=== PATIENT | male | born 1960 | race Caucasian/White ===

== ENCOUNTER 2016-11-16 07:13 | Emergency (ER) | payer OTHER ==
[2016-11-16] MEDS ORDERED: OFLOXACIN 0.3% SOLN PREPACK OPHT.BTL TAKEHOME ONE (07:34)
--- NOTE | 2016-11-16 07:36 | EDPHY ---
H & P Stated Complaint: concerns of B eye conjunctivitis Time Seen by Provider: 11/16/16 07:30 HPI/ROS: CHIEF COMPLAINT: Bilateral eye irritation HISTORY OF PRESENT ILLNESS: Patient is a 56-year-old man who comes to the emergency department complaining of 3 days of itchy and watery eyes with greenish discharge. It began in his right eye and now is both. No fevers. No upper respiratory symptoms. No sore throat. He is not on any medications. REVIEW OF SYSTEMS: Constitutional: denies: chills, fever, recent illness, recent injury EENTM: See HPI Respiratory: denies: cough, shortness of breath Cardiac: denies: chest pain, irregular heart rate, lightheadedness, palpitations Gastrointestinal/Abdominal: denies: abdominal pain, diarrhea, nausea, vomiting, blood streaked stools Genitourinary: denies: dysuria, frequency, hematuria, pain Musculoskeletal: denies: joint pain, muscle pain Skin: denies: lesions, rash, jaundice, bruising Neurological: denies: headache, numbness, paresthesia, tingling, dizziness, weakness Hematologic/Lymphatic: denies: blood clots, easy bleeding, easy bruising Immunologic/allergic: denies: HIV/AIDS, transplant EXAM: GENERAL: Well-appearing, well-nourished and in no acute distress. HEAD: Atraumatic, normocephalic. EYES: Pupils equal round and reactive to light, extraocular movements intact, sclera anicteric, conjunctiva injected with discharge . ENT: TMs normal, nares patent, oropharynx clear without exudates. Moist mucous membranes. NECK: Normal range of motion, supple without lymphadenopathy or JVD. LUNGS: Breath sounds clear to auscultation bilaterally and equal. No wheezes rales or rhonchi. HEART: Regular rate and rhythm without murmurs, rubs or gallops. ABDOMEN: Soft, nontender, normoactive bowel sounds. No guarding, no rebound. No masses appreciated. BACK: No CVA tenderness, no spinal tenderness, step-offs or deformities EXTREMITIES: Normal range of motion, no pitting or edema. No clubbing or cyanosis. NEUROLOGICAL: Cranial nerves II through XII grossly intact. Normal speech, normal gait. 5/5 strength, normal movement in all extremities, normal sensation PSYCH: Normal mood, normal affect. SKIN: Warm, dry, normal turgor, no visible rashes or lesions. Source: Patient Exam Limitations: No limitations - Personal History Current Tetanus/Diphtheria Vaccine: Unsure Current Tetanus Diphtheria and Acellular Pertussis (TDAP): Unsure - Medical/Surgical History Hx Asthma: No Hx Chronic Respiratory Disease: No Hx Diabetes: No Hx Cardiac Disease: No Hx Renal Disease: No Hx Cirrhosis: No Hx Alcoholism: No Hx HIV/AIDS: No Hx Splenectomy or Spleen Trauma: No Other PMH: denies - Family History Significant Family History: No pertinent family hx - Social History Smoking Status: Never smoked Alcohol Use: Sober Drug Use: None Constitutional: Initial Vital Signs Temperature (C) 36.3 C 11/16/16 07:14 Heart Rate 55 L 11/16/16 07:14 Respiratory Rate 14 11/16/16 07:14 Blood Pressure 106/74 11/16/16 07:14 O2 Sat (%) 96 11/16/16 07:14 O2 Delivery Mode Room Air Allergies/Adverse Reactions: alcohol [gin] Allergy (Verified 11/16/16 07:15) ybarra beans Allergy (Uncoded 11/16/16 07:15) Home Medications: Medication Instructions Recorded Tamsulosin HCl 11/16/16 Valacyclovir 11/16/16 Medical Decision Making ED Course/Re-evaluation: I will treat the patient with Ocuflox. He does not wear contacts or glasses. 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 Agrees with this plan. He declines further workup or testing at this time. Differential Diagnosis: Partial list of the Differential diagnosis considered include but were not limited to; conjunctivitis, blepharitis, allergies and although unlikely based on the history and physical exam, I also considered foreign body, ruptured globe , iritis, glaucoma. I discussed these differential diagnoses and the plan with the patient as well as the usual and expected course. The patient understands that the diagnosis is provisional and that in medicine we are not always correct and that further workup is often warranted. Usual and customary warnings were given. All of the patient's questions were answered. The patient was instructed to return to the emergency department should the symptoms at all worsen or return, otherwise to followup with the physician as we discussed. - Data Points Medications Given: Discontinued Medications Ofloxacin (Ocuflox 0.3% Opht Drops Prepack) 1 btl TAKEHOME EDNOW ONE Stop: 11/16/16 07:35 Last Admin: 11/16/16 07:39 Dose: 1 btl Departure - Departure Disposition: Home, Routine, Self-Care Clinical Impression: Acute conjunctivitis of both eyes Qualifiers: Acute conjunctivitis type: bacterial Qualified Code(s): H10.33 - Unspecified acute conjunctivitis, bilateral Condition: Fair Instructions: Ofloxacin (Into the eye), Conjunctivitis (ED) Additional Instructions: Use the Ocuflox eyedrops 2 drops every 4 hours for 5 days. Follow up with the lift truck mechanic if you're not improving. Referrals: DIANE SHELL [Primary Care Provider] - As per Instructions Alvin Rosario MD [Medical Doctor] - As per Instructions
[2016-11-16 07:47] VITALS: BP 121/65; PULSE 49; RESP 18; TEMP 97.9; O2SAT 97
== END 2016-11-16 07:51 | disposition home or self-care (01) ==
DX: H10.33 Unspecified acute conjunctivitis, bilateral (principal)